=== PATIENT | female | born 1935 | race Caucasian/White ===

== ENCOUNTER 2017-03-22 06:38 | Inpatient (IN) | payer OTHER ==
[~2017-03-22] VITALS: Ht 152.4 cm; Wt 63.0 kg
[2017-03-22] MEDS ORDERED: SODIUM CHLORIDE 0.9% 1,000 ML IV ONE (07:35)
[2017-03-22] MEDS ORDERED: ONDANSETRON HCL 4 MG/2 ML VIAL IV ONE (07:45)
[2017-03-22 08:25] LABS: Basophils # (auto) 0 uL; Basophils % (auto) 0.1 % (0.0-2.0); CONDITION Y; Eosinophils # (auto) 0 uL; Eosinophils % (auto) 0.3 % (0.0-7.0); Hemoglobin 13.3 g/dL (12.2-16.2); Lymphocytes # (auto) 0.3 uL; Lymphocytes % (auto) 10.8 % (10.0-50.0); Mean Corpuscular Hemoglobin 29.7 pg (28.0-32.0); Mean Corpuscular Hgb Conc. 33.3 g/dL (32.0-36.0); Mean Corpuscular Volume 89.2 fL (80.0-100.0); Mean Platelet Volume 8.4 fL (7.4-10.4); Monocytes # (auto) 0.2 uL; Neutrophils # (auto) 2.6 uL; Neutrophils % (auto) 83.8 % (37.0-80.0); Platelet Count (auto) 279 10^3/uL (140-450); Red Cell Distribution Width 16.8 % (11.6-16.0); White Blood Cell 3.1 10^3/uL (4.4-10.8)
[2017-03-22 08:50] LABS: Albumin 2.8 g/dL (3.4-5.0); BUN/Creatinine Ratio 41.3; Bilirubin, Total 1.1 mg/dL (0.2-1.0); Calcium 8.9 mg/dL (8.5-10.1); Potassium 3.4 mmol/L (3.5-5.1); Total Protein 6.9 g/dL (6.4-8.2)
[2017-03-22] MEDS ORDERED: AZITHROMYCIN 500MG/D5W 250ML 250 ML IV ONE (09:00)
[2017-03-22 09:47] LABS: Urine Bilirubin Negative (Negative); Urine Blood TRACE /uL (Negative); Urine Color Yellow (Yellow); Urine Glucose Normal (Normal); Urine Hyaline Cast FEW /lpf (0 - 2); Urine Ketone TRACE (Negative); Urine Mucus FEW (None Seen); Urine Nitrite Negative (Negative); Urine RBC 12 /hpf (0 - 4); Urine Squamous Epithelial Cell FEW /hpf (<5); Urine pH 5.5 (5.0-8.0)
[2017-03-22] MEDS ORDERED: LORazepam 2MG/ML-1ML VIAL IV ONE (10:00)
[2017-03-22] MEDS ORDERED: MIDAZOLAM DRIP 50 mg/50mL 50 ML IV ONE (12:09)
[2017-03-22] MEDS ORDERED: ETOMIDATE (2MG/ML) 20ML VIAL IV ONE ×2 (12:15→12:18)
[2017-03-22] MEDS ORDERED: SUCCINYLCHOLINE CHLORIDE 20 MG/ML 10ML VIAL IV ONE ×2 (12:15→12:18)
[2017-03-22] MEDS: MIDAZOLAM DRIP 50 mg/50mL 50 ML IV SCH ×2 (12:30→22:30)
[2017-03-22 12:33] VITALS: BP 130/66
[2017-03-22] MEDS ORDERED: POTASSIUM CHLORIDE 20 MEQ, LIDOCAINE 1% (LOCAL ANESTH.) 2 ML in SODIUM CHL 0.9% 100 ML IV ONE (12:45)
[2017-03-22 13:45] LABS: Allen Test Modified; Base Excess 2.3 mmol/L (-2.0-2.0); Blood 02Sat 97.9 % (96-100); Blood COHb 0.7 % (0.5-1.5); Blood MetHb 0.6 % (0.0-1.5); HCO3 26.4 mmol/L (22-26.0); HHb 2.1 % (0.0-5.0); MODE VENT - A/C; O2Hb 96.6 % (94.0-97.0); PCO2 39.1 mmHg (35.0-45.0); PCO2(T) 39.1 mmHg (35.0-45.0); PO2 130.6 mmHg (80.0-100.0); PO2(T) 130.6 mmHg (80.0-100.0); Sample Type Arterial; pH 7.447 (7.350-7.450)
[2017-03-22 14:00] VITALS: BP 128/69
[2017-03-22] MEDS ORDERED: ACETAMINOPHEN 650 mg PER 20 mL UD ONE (14:43)
[2017-03-22] MEDS ORDERED: NOREPINEPHRINE BITARTRATE 250 ML IV ONE (14:44)
[2017-03-22] MEDS ORDERED: ACETAMINOPHEN 650 mg PER 20 mL UD GT ONE (15:00)
[2017-03-22] MEDS: NOREPINEPHRINE BITARTRATE 250 ML IV SCH (15:00)
[2017-03-22 15:43] VITALS: BP 124/66
[2017-03-22] MEDS ORDERED: SODIUM CHLORIDE 0.9% 2,000 ML IV ONE (18:00)
[2017-03-22] MEDS: SODIUM CHLORIDE 0.9% 1,000 ML IV SCH (18:00)
[2017-03-22] MEDS ORDERED: ONDANSETRON HCL 4 MG/2 ML VIAL IV PRN (18:00)
[2017-03-22] MEDS ORDERED: NITROGLYCERIN 0.4 MG SL TAB SL PRN (18:00)
[2017-03-22] MEDS ORDERED: MORPHINE SULF INJ 2 MG/ML SYRINGE 1ML IV PRN (18:00)
[2017-03-22] MEDS ORDERED: VANCOMYCIN PER PHARMACY 0 MG IV SCH (18:00)
[2017-03-22] MEDS ORDERED: ACETAMINOPHEN 650 mg PER 20 mL UD GT PRN (18:00)
[2017-03-22 18:30] LABS: Allen Test Yes; Base Excess 1.1 mmol/L (-2.0-2.0); Blood 02Sat 93.6 % (96-100); Blood COHb 0.5 % (0.5-1.5); Blood MetHb 0.6 % (0.0-1.5); HCO3 26.7 mmol/L (22-26.0); HHb 6.3 % (0.0-5.0); MODE VENT - A/C; O2Hb 92.6 % (94.0-97.0); PCO2 46.4 mmHg (35.0-45.0); PCO2(T) 47.4 mmHg (35.0-45.0); PO2 79.8 mmHg (80.0-100.0); PO2(T) 82.5 mmHg (80.0-100.0); Sample Type Arterial; pH 7.378 (7.350-7.450)
[2017-03-22] MEDS ORDERED: OMEPRAZOLE 20MG/10ML ORAL SUSP GT SCH (18:37)
[2017-03-22] MEDS ORDERED: PANTOPRAZOLE SODIUM 40 MG/10 ML VIAL IV ONE (19:00)
[2017-03-22 20:00] VITALS: BP 100/51
[2017-03-22] MEDS ORDERED: VANCOMYCIN 1GM/250ML D5W 250 ML IV ONE (20:00)
[2017-03-22] MEDS: PIPERACILLIN-TAZOB 3.375GM 100 ML IV SCH (20:10)
[2017-03-22 20:22] LABS: Albumin 2.1 g/dL (3.4-5.0); BUN/Creatinine Ratio 37.2; Bilirubin, Total 1.1 mg/dL (0.2-1.0); Calcium 7.9 mg/dL (8.5-10.1); Potassium 3.1 mmol/L (3.5-5.1); Total Protein 5.4 g/dL (6.4-8.2)
[2017-03-22 20:36] VITALS: BP 96/48
[2017-03-22 20:37] LABS: CONDITION Y; DEFINITIVE SEE PRINTOUT; Hematocrit 36.5 % (36.0-46.0); Mean Corpuscular Hemoglobin 29.7 pg (28.0-32.0); Mean Corpuscular Hgb Conc. 32.8 g/dL (32.0-36.0); Mean Corpuscular Volume 90.6 fL (80.0-100.0); Mean Platelet Volume 8.9 fL (7.4-10.4); Platelet Count (auto) 200 10^3/uL (140-450); Red Cell Distribution Width 16.9 % (11.6-16.0); SUSPECT SEE PRINTOUT
[2017-03-22 20:45] LABS: White Blood Cell 1.9 10^3/uL (4.4-10.8)
[2017-03-22 20:47] LABS: Metamyelocytes % 0; Myelocytes % 0; Promyelocytes % 0; Reactive Lymphocytes 0
[2017-03-22 21:02] LABS: Burr Cells FEW; Giant Platelets Few; Platelet Clumps FEW; Platelet Estimate Adequate; Stomatocytes Few
[2017-03-22 22:05] VITALS: BP 85/49
[2017-03-22] MEDS: ALBUTEROL SULF 2.5 MG/0.5ML(0.5%) NEB SOLN NEB SCH (22:05)
[2017-03-22] MEDS: IPRATROPIUM BROM 0.5 MG/2.5ML INH SOL NEB SCH (22:05)
[2017-03-22 22:11] LABS: INR 1.16 (0.9-1.15); Partial Thromboplastin Time 27.7 sec (22.64-33.71)
[2017-03-22 22:12] LABS: Prothrombin Time 12.7 sec (9.37-12.3)
[2017-03-23] VITALS (98 sets, daily range): BP systolic 86–149; BP diastolic 28–116
[2017-03-23] MEDS: PIPERACILLIN-TAZOB 3.375GM 100 ML IV SCH ×4 (00:06→18:22)
[2017-03-23] MEDS: NOREPINEPHRINE BITARTRATE 250 ML IV SCH (00:25)
[2017-03-23] MEDS: SODIUM CHLORIDE 0.9% 1,000 ML IV SCH (04:00)
[2017-03-23 05:28] LABS: Basophils # (auto) 0 uL; Basophils % (auto) 0.3 % (0.0-2.0); CONDITION Y; Eosinophils # (auto) 0 uL; Eosinophils % (auto) 0.6 % (0.0-7.0); Hematocrit 34.4 % (36.0-46.0); Hemoglobin 11.4 g/dL (12.2-16.2); Lymphocytes # (auto) 0.8 uL; Lymphocytes % (auto) 18.6 % (10.0-50.0); Mean Corpuscular Hemoglobin 29.9 pg (28.0-32.0); Mean Corpuscular Hgb Conc. 33.1 g/dL (32.0-36.0); Mean Corpuscular Volume 90.2 fL (80.0-100.0); Mean Platelet Volume 9.4 fL (7.4-10.4); Monocytes # (auto) 0 uL; Neutrophils # (auto) 3.5 uL; Neutrophils % (auto) 79.5 % (37.0-80.0); Platelet Count (auto) 213 10^3/uL (140-450); Red Cell Distribution Width 16.7 % (11.6-16.0); SUSPECT SEE PRINTOUT; White Blood Cell 4.4 10^3/uL (4.4-10.8)
[2017-03-23 05:43] LABS: INR 1.15 (0.9-1.15); Partial Thromboplastin Time 29.6 sec (22.64-33.71)
[2017-03-23 05:55] LABS: Prothrombin Time 12.5 sec (9.37-12.3)
[2017-03-23 05:58] LABS: Albumin 2.1 g/dL (3.4-5.0); BUN/Creatinine Ratio 49.4; Calcium 7.4 mg/dL (8.5-10.1); Magnesium 1.8 mg/dL (1.6-2.6); Potassium 3.2 mmol/L (3.5-5.1)
[2017-03-23 06:01] LABS: Bilirubin, Total 1.4 mg/dL (0.2-1.0); Total Protein 5.7 g/dL (6.4-8.2)
[2017-03-23] MEDS: IPRATROPIUM BROM 0.5 MG/2.5ML INH SOL NEB SCH ×3 (06:52→18:39)
[2017-03-23] MEDS: ALBUTEROL SULF 2.5 MG/0.5ML(0.5%) NEB SOLN NEB SCH ×3 (06:52→18:39)
[2017-03-23 08:41] LABS: Allen Test Yes; Base Excess 3.3 mmol/L (-2.0-2.0); Blood 02Sat 95.5 % (96-100); Blood COHb 0.3 % (0.5-1.5); Blood MetHb 0.4 % (0.0-1.5); HCO3 27.2 mmol/L (22-26.0); HHb 4.5 % (0.0-5.0); MODE VENT - A/C; O2Hb 94.8 % (94.0-97.0); PCO2 38.6 mmHg (35.0-45.0); PCO2(T) 38.6 mmHg (35.0-45.0); PO2 83.1 mmHg (80.0-100.0); PO2(T) 83.1 mmHg (80.0-100.0); Sample Type Arterial; pH 7.466 (7.350-7.450)
[2017-03-23] MEDS ORDERED: MOMLQ GT (08:58)
[2017-03-23] MEDS ORDERED: OMEP20CA74 PO (09:12)
[2017-03-23] MEDS ORDERED: LORA1TAB12 PO (09:12)
[2017-03-23] MEDS ORDERED: ACE3T PO (09:12)
[2017-03-23] MEDS ORDERED: ARTISOL13 EACHEYE (09:12)
[2017-03-23] MEDS ORDERED: ACET5SOL5 PO (09:12)
[2017-03-23] MEDS ORDERED: BISA10SU3 RE (09:12)
[2017-03-23] MEDS ORDERED: OLAN20TA13 PO (09:12)
[2017-03-23] MEDS ORDERED: DOCU100C8 PO (09:12)
[2017-03-23] MEDS ORDERED: TRAZ100T2 PO (09:12)
[2017-03-23] MEDS ORDERED: LOPE2TAB99 PO (09:12)
[2017-03-23] MEDS ORDERED: ONDA4TAB5 PO (09:12)
[2017-03-23] MEDS ORDERED: OMEPRAZOLE 20MG/10ML ORAL SUSP GT SCH (10:00)
[2017-03-23] MEDS: PANTOPRAZOLE SODIUM 40 MG/10 ML VIAL IV SCH (10:14)
[2017-03-23] MEDS: VANCOMYCIN 1GM/250ML D5W 250 ML IV SCH (10:14)
[2017-03-23] MEDS ORDERED: SODIUM CHLORIDE 0.9% 1,000 ML IV ONE (11:15)
[2017-03-23] MEDS: SOD CHL 0.45% 1,000 ML IV SCH (12:00)
[2017-03-23] MEDS ORDERED: FREE WATER GT SCH (14:00)
[2017-03-23 18:12] LABS: CONDITION Y; Hematocrit 31.3 % (36.0-46.0); Hemoglobin 10.5 g/dL (12.2-16.2); Mean Corpuscular Hemoglobin 30.6 pg (28.0-32.0); Mean Corpuscular Hgb Conc. 33.5 g/dL (32.0-36.0); Mean Corpuscular Volume 91.3 fL (80.0-100.0); Mean Platelet Volume 9.1 fL (7.4-10.4); Platelet Count (auto) 182 10^3/uL (140-450); Red Cell Distribution Width 16.4 % (11.6-16.0); SUSPECT SEE PRINTOUT; White Blood Cell 7.8 10^3/uL (4.4-10.8)
[2017-03-23 18:17] LABS: Metamyelocytes % 0; Myelocytes % 0; Promyelocytes % 0; Reactive Lymphocytes 0
[2017-03-23 18:24] LABS: INR 1.15 (0.9-1.15); Partial Thromboplastin Time 32.7 sec (22.64-33.71)
[2017-03-23 18:33] LABS: Prothrombin Time 12.6 sec (9.37-12.3)
[2017-03-23 18:35] LABS: Albumin 1.8 g/dL (3.4-5.0); Bilirubin, Total 0.9 mg/dL (0.2-1.0); Calcium 7.5 mg/dL (8.5-10.1); Magnesium 1.9 mg/dL (1.6-2.6); Total Protein 5.5 g/dL (6.4-8.2)
[2017-03-23 18:38] LABS: Bilirubin, Direct 0.3 mg/dL (0-0.2)
[2017-03-23 20:26] LABS: Platelet Estimate Adequate
[2017-03-23 20:27] LABS: Ovalocytes FEW
[2017-03-23] MEDS ORDERED: ALBUMIN 25% 100 ML IV ONE (22:45)
[2017-03-23] MEDS: POTASSIUM CHL 20MEQ/100ML 100 ML IV SCH (23:14)
[2017-03-24] VITALS (81 sets, daily range): BP systolic 87–156; BP diastolic 31–86
[2017-03-24] MEDS: ALBUTEROL SULF 2.5 MG/0.5ML(0.5%) NEB SOLN NEB SCH ×4 (00:19→18:00)
[2017-03-24] MEDS: IPRATROPIUM BROM 0.5 MG/2.5ML INH SOL NEB SCH ×4 (00:19→18:00)
[2017-03-24] MEDS: PIPERACILLIN-TAZOB 3.375GM 100 ML IV SCH ×5 (01:30→23:41)
[2017-03-24] MEDS: POTASSIUM CHL 20MEQ/100ML 100 ML IV SCH ×4 (02:15→21:37)
[2017-03-24 05:08] LABS: CONDITION Y; Hematocrit 29.4 % (36.0-46.0); Hemoglobin 9.7 g/dL (12.2-16.2); Mean Platelet Volume 8.9 fL (7.4-10.4); Platelet Count (auto) 162 10^3/uL (140-450); Red Cell Distribution Width 16.8 % (11.6-16.0); SUSPECT SEE PRINTOUT; White Blood Cell 11.2 10^3/uL (4.4-10.8)
[2017-03-24 05:12] LABS: Metamyelocytes % 0; Myelocytes % 0; Promyelocytes % 0; Reactive Lymphocytes 0
[2017-03-24 05:24] LABS: INR 1.05 (0.9-1.15); Partial Thromboplastin Time 33.8 sec (22.64-33.71); Prothrombin Time 11.4 sec (9.37-12.3)
[2017-03-24 05:49] LABS: Albumin 2.4 g/dL (3.4-5.0); BUN/Creatinine Ratio 49.1; Calcium 7.8 mg/dL (8.5-10.1); Magnesium 2.1 mg/dL (1.6-2.6); Potassium 3.3 mmol/L (3.5-5.1); Total Protein 5.9 g/dL (6.4-8.2)
[2017-03-24 05:52] LABS: Bilirubin, Direct 0.3 mg/dL (0-0.2)
[2017-03-24 06:54] LABS: Allen Test Modified; Base Excess 3.4 mmol/L (-2.0-2.0); Blood COHb 0.7 % (0.5-1.5); Blood MetHb 0.8 % (0.0-1.5); HCO3 27.7 mmol/L (22-26.0); HHb 4.9 % (0.0-5.0); MODE VENT - A/C; O2Hb 93.6 % (94.0-97.0); PCO2 40.7 mmHg (35.0-45.0); PCO2(T) 40.7 mmHg (35.0-45.0); PO2 79.3 mmHg (80.0-100.0); PO2(T) 79.3 mmHg (80.0-100.0); Sample Type Arterial
[2017-03-24 07:56] LABS: Platelet Estimate Adequate; RBC Morphology Normal
[2017-03-24] MEDS: SOD CHL 0.45% 1,000 ML IV SCH ×4 (08:15→22:39)
[2017-03-24] MEDS: MIDAZOLAM DRIP 50 mg/50mL 50 ML IV SCH ×2 (08:40→17:12)
[2017-03-24] MEDS: VANCOMYCIN 1GM/250ML D5W 250 ML IV SCH (09:49)
[2017-03-24] MEDS: PANTOPRAZOLE SODIUM 40 MG/10 ML VIAL IV SCH (09:49)
[2017-03-24] MEDS: NOREPINEPHRINE BITARTRATE 250 ML IV SCH (14:11)
[2017-03-24] MEDS: ENOXAPARIN SOD 40 MG/0.4 ML SYRINGE SC SCH (14:17)
[2017-03-24] MEDS ORDERED: ACETAMINOPHEN 650 MG RECT SUPP PR PRN (15:00)
[2017-03-24 18:24] LABS: CONDITION Y; Hematocrit 28.5 % (36.0-46.0); Hemoglobin 9.5 g/dL (12.2-16.2); Mean Corpuscular Hemoglobin 29.9 pg (28.0-32.0); Mean Corpuscular Hgb Conc. 33.2 g/dL (32.0-36.0); Mean Corpuscular Volume 89.9 fL (80.0-100.0); Mean Platelet Volume 9.5 fL (7.4-10.4); Platelet Count (auto) 146 10^3/uL (140-450); Red Cell Distribution Width 16.7 % (11.6-16.0); SUSPECT SEE PRINTOUT; White Blood Cell 11.1 10^3/uL (4.4-10.8)
[2017-03-24 18:39] LABS: Metamyelocytes % 0; Myelocytes % 0; Promyelocytes % 0; Reactive Lymphocytes 0
[2017-03-24 18:44] LABS: Albumin 2.1 g/dL (3.4-5.0); BUN/Creatinine Ratio 47.6; Calcium 8.2 mg/dL (8.5-10.1); Magnesium 2.2 mg/dL (1.6-2.6); Potassium 3.2 mmol/L (3.5-5.1); Total Protein 5.7 g/dL (6.4-8.2)
[2017-03-24 18:46] LABS: INR 0.96 (0.9-1.15); Partial Thromboplastin Time 34.1 sec (22.64-33.71); Prothrombin Time 10.5 sec (9.37-12.3)
[2017-03-24 18:51] LABS: Bilirubin, Direct 0.3 mg/dL (0-0.2)
[2017-03-24 20:18] LABS: Platelet Estimate Adequate
[2017-03-25] VITALS (96 sets, daily range): BP systolic 94–173; BP diastolic 40–113
[2017-03-25] MEDS: ALBUTEROL SULF 2.5 MG/0.5ML(0.5%) NEB SOLN NEB SCH (00:05)
[2017-03-25] MEDS: IPRATROPIUM BROM 0.5 MG/2.5ML INH SOL NEB SCH ×4 (00:05→18:28)
[2017-03-25] MEDS ORDERED: fentaNYL Drip 2500mCg/250mlNS 250 ML IV SCH (01:36)
[2017-03-25] MEDS ORDERED: ALBUMIN 5% 250 ML IV ONE (01:45)
[2017-03-25] MEDS: PIPERACILLIN-TAZOB 3.375GM 100 ML IV SCH ×2 (06:25→11:22)
[2017-03-25 07:02] LABS: Allen Test Modified; Base Excess 2.1 mmol/L (-2.0-2.0); Blood COHb 0.4 % (0.5-1.5); Blood MetHb 1.8 % (0.0-1.5); HCO3 26.7 mmol/L (22-26.0); HHb 6.8 % (0.0-5.0); MODE VENT - A/C; PCO2 41.8 mmHg (35.0-45.0); PCO2(T) 41.8 mmHg (35.0-45.0); PO2 70.8 mmHg (80.0-100.0); PO2(T) 70.8 mmHg (80.0-100.0); Sample Type Arterial; Spont Vt 421; pH 7.423 (7.350-7.450)
[2017-03-25 08:14] LABS: CONDITION Y; Hematocrit 27.5 % (36.0-46.0); Hemoglobin 9.2 g/dL (12.2-16.2); Mean Corpuscular Hemoglobin 30.1 pg (28.0-32.0); Mean Corpuscular Hgb Conc. 33.5 g/dL (32.0-36.0); Mean Corpuscular Volume 89.9 fL (80.0-100.0); Mean Platelet Volume 9.4 fL (7.4-10.4); Platelet Count (auto) 140 10^3/uL (140-450); Red Cell Distribution Width 16.9 % (11.6-16.0); SUSPECT SEE PRINTOUT; White Blood Cell 10.1 10^3/uL (4.4-10.8)
[2017-03-25 08:23] LABS: INR 0.92 (0.9-1.15); Partial Thromboplastin Time 30.4 sec (22.64-33.71)
[2017-03-25 08:27] LABS: Metamyelocytes % 0; Myelocytes % 0; Promyelocytes % 0; Reactive Lymphocytes 0
[2017-03-25 08:39] LABS: BUN/Creatinine Ratio 36.4; Calcium 7.7 mg/dL (8.5-10.1); Magnesium 1.9 mg/dL (1.6-2.6); Potassium 3.1 mmol/L (3.5-5.1)
[2017-03-25 08:42] LABS: Bilirubin, Total 0.8 mg/dL (0.2-1.0); Total Protein 5.4 g/dL (6.4-8.2)
[2017-03-25 09:00] LABS: Bilirubin, Direct 0.2 mg/dL (0-0.2)
[2017-03-25] MEDS: PANTOPRAZOLE SODIUM 40 MG/10 ML VIAL IV SCH (09:37)
[2017-03-25] MEDS: POTASSIUM CHL 20MEQ/100ML 100 ML IV SCH ×2 (09:38→11:22)
[2017-03-25 09:49] LABS: Platelet Estimate Adequate
[2017-03-25 09:52] LABS: Tear Drop Cells FEW
[2017-03-25] MEDS ORDERED: VANCOMYCIN 1GM/250ML D5W 250 ML IV SCH (10:00)
[2017-03-25] MEDS ORDERED: PANTOPRAZOLE SODIUM 40 MG/10 ML VIAL IV SCH (10:00)
[2017-03-25] MEDS ORDERED: TPN PER PHARMACY 0 ML IV SCH ×2 (12:00→15:00)
[2017-03-25] MEDS ORDERED: MIDAZOLAM HCL 1MG/1ML-2 ML VIAL IV PRN (12:00)
[2017-03-25 12:18] LABS: B-Type Natriuretic Peptide 105.78 pg/mL (0-100)
[2017-03-25 12:40] LABS: Temperature: 24.6 C (20.0-25.0)
[2017-03-25] MEDS: cefTRIAXone 1GM/50ML D5W 50 ML IV SCH (12:46)
[2017-03-25] MEDS: ENOXAPARIN SOD 40 MG/0.4 ML SYRINGE SC SCH (12:47)
[2017-03-25 13:48] LABS: Magnesium 2.1 mg/dL (1.6-2.6); Phosphorus 1.9 mg/dL (2.5-4.90)
[2017-03-25] MEDS: NOREPINEPHRINE BITARTRATE 250 ML IV SCH (15:00)
[2017-03-25] MEDS: SOD CHL 0.45% 1,000 ML IV SCH (15:03)
[2017-03-25] MEDS: InsuLIN REG 1unit/0.01ml Soln (100units/ml) SC SCH (17:44)
[2017-03-25] MEDS: ACCU-CHEK COMFORT CURVE STRIP VI SCH (17:44)
[2017-03-25] MEDS ORDERED: DEXTROSE (50%) 50ML SYRG IV SCH (18:00)
[2017-03-25] MEDS ORDERED: POTASSIUM PHOSPHATE 44 MEQ in NS 0.9% 250 ML IV ONE (18:00)
[2017-03-25 19:38] LABS: CONDITION Y; Hemoglobin 9.5 g/dL (12.2-16.2); Mean Corpuscular Hemoglobin 29.7 pg (28.0-32.0); Mean Corpuscular Hgb Conc. 32.9 g/dL (32.0-36.0); Mean Corpuscular Volume 90.5 fL (80.0-100.0); Mean Platelet Volume 10.1 fL (7.4-10.4); Platelet Count (auto) 135 10^3/uL (140-450); Red Cell Distribution Width 16.4 % (11.6-16.0); SUSPECT SEE PRINTOUT; White Blood Cell 8.5 10^3/uL (4.4-10.8)
[2017-03-25 19:46] LABS: Metamyelocytes % 0; Myelocytes % 0; Promyelocytes % 0; Reactive Lymphocytes 0
[2017-03-25 19:49] LABS: Albumin 1.9 g/dL (3.4-5.0); BUN/Creatinine Ratio 40.6; Bilirubin, Direct 0.2 mg/dL (0-0.2); Bilirubin, Total 0.6 mg/dL (0.2-1.0); Magnesium 1.9 mg/dL (1.6-2.6); Potassium 3.7 mmol/L (3.5-5.1); Total Protein 5.5 g/dL (6.4-8.2)
[2017-03-25] MEDS ORDERED: CLINIMIX PER PHARMACY IV NR ×7 (20:00)
[2017-03-25 20:15] LABS: INR 0.93 (0.9-1.15); Partial Thromboplastin Time 24.6 sec (22.64-33.71); Prothrombin Time 10.1 sec (9.37-12.3)
[2017-03-25 21:05] LABS: Platelet Estimate Decreased
[2017-03-26] VITALS (70 sets, daily range): BP systolic 111–171; BP diastolic 47–100
[2017-03-26] MEDS: IPRATROPIUM BROM 0.5 MG/2.5ML INH SOL NEB SCH ×4 (00:12→18:41)
[2017-03-26] MEDS: SOD CHL 0.45% 1,000 ML IV SCH ×3 (04:15→21:10)
[2017-03-26] MEDS: InsuLIN REG 1unit/0.01ml Soln (100units/ml) SC SCH ×4 (06:00→18:00)
[2017-03-26 06:14] LABS: Basophils # (auto) 0 uL; Basophils % (auto) 0.1 % (0.0-2.0); CONDITION Y; Eosinophils # (auto) 0.1 uL; Eosinophils % (auto) 1.9 % (0.0-7.0); Hematocrit 29.6 % (36.0-46.0); Hemoglobin 9.8 g/dL (12.2-16.2); Lymphocytes # (auto) 1.3 uL; Lymphocytes % (auto) 17.2 % (10.0-50.0); Mean Corpuscular Hgb Conc. 33.2 g/dL (32.0-36.0); Mean Corpuscular Volume 90.5 fL (80.0-100.0); Mean Platelet Volume 10.3 fL (7.4-10.4); Monocytes # (auto) 0 uL; Monocytes % (auto) 0.6 % (0.0-12.0); Neutrophils # (auto) 6.2 uL; Neutrophils % (auto) 80.2 % (37.0-80.0); Platelet Count (auto) 153 10^3/uL (140-450); Red Cell Distribution Width 16.5 % (11.6-16.0); White Blood Cell 7.7 10^3/uL (4.4-10.8)
[2017-03-26 06:25] LABS: INR 0.95 (0.9-1.15); Partial Thromboplastin Time 27.7 sec (22.64-33.71); Prothrombin Time 10.4 sec (9.37-12.3)
[2017-03-26 06:44] LABS: Albumin 1.9 g/dL (3.4-5.0); Bilirubin, Direct 0.1 mg/dL (0-0.2); Bilirubin, Total 0.5 mg/dL (0.2-1.0); Calcium 7.9 mg/dL (8.5-10.1); Magnesium 1.8 mg/dL (1.6-2.6); Phosphorus 2.6 mg/dL (2.5-4.90); Potassium 3.5 mmol/L (3.5-5.1); Total Protein 5.5 g/dL (6.4-8.2)
[2017-03-26] MEDS: ACCU-CHEK COMFORT CURVE STRIP VI SCH ×4 (06:50→18:00)
[2017-03-26] MEDS: cefTRIAXone 1GM/50ML D5W 50 ML IV SCH (08:16)
[2017-03-26] MEDS ORDERED: FUROSEMIDE 40 MG/4 ML VIAL IV ONE (08:45)
[2017-03-26 08:54] LABS: Allen Test Yes; Base Excess 1.9 mmol/L (-2.0-2.0); Blood 02Sat 90.2 % (96-100); Blood COHb 0.3 % (0.5-1.5); Blood MetHb 0.2 % (0.0-1.5); HCO3 24.8 mmol/L (22-26.0); HHb 9.8 % (0.0-5.0); MODE VENT - A/C; O2Hb 89.7 % (94.0-97.0); PCO2 32.7 mmHg (35.0-45.0); PCO2(T) 32.7 mmHg (35.0-45.0); PO2 59.4 mmHg (80.0-100.0); PO2(T) 59.4 mmHg (80.0-100.0); Sample Type Arterial; pH 7.497 (7.350-7.450)
[2017-03-26] MEDS: PANTOPRAZOLE SODIUM 40 MG/10 ML VIAL IV SCH (09:13)
[2017-03-26] MEDS ORDERED: FUROSEMIDE 20 MG/2 ML VIAL IV ONE (09:15)
[2017-03-26] MEDS ORDERED: POTASSIUM CHL 20MEQ/100ML 100 ML IV ONE (11:00)
[2017-03-26] MEDS: ENOXAPARIN SOD 40 MG/0.4 ML SYRINGE SC SCH (12:02)
[2017-03-26] MEDS: NOREPINEPHRINE BITARTRATE 250 ML IV SCH (15:00)
[2017-03-26] MEDS ORDERED: LEVOFLOXACIN 500MG 100 ML IV ONE (16:45)
[2017-03-26] MEDS ORDERED: TPN PER PHARMACY IV NR ×10 (20:00)
[2017-03-26] MEDS: METOPROLOL TARTRATE 25 MG TAB PO SCH (22:29)
[2017-03-27] VITALS (41 sets, daily range): BP systolic 110–179; BP diastolic 36–109
[2017-03-27] MEDS: ACCU-CHEK COMFORT CURVE STRIP VI SCH ×4 (00:16→18:00)
[2017-03-27] MEDS: IPRATROPIUM BROM 0.5 MG/2.5ML INH SOL NEB SCH ×4 (00:16→19:05)
[2017-03-27] MEDS: InsuLIN REG 1unit/0.01ml Soln (100units/ml) SC SCH ×4 (00:17→18:00)
[2017-03-27 04:02] LABS: Basophils # (auto) 0.1 uL; Basophils % (auto) 0.5 % (0.0-2.0); CONDITION Y; Eosinophils # (auto) 0 uL; Eosinophils % (auto) 0.2 % (0.0-7.0); Hematocrit 28.9 % (36.0-46.0); Hemoglobin 9.7 g/dL (12.2-16.2); Lymphocytes # (auto) 1.1 uL; Lymphocytes % (auto) 10.7 % (10.0-50.0); Mean Corpuscular Hemoglobin 30.1 pg (28.0-32.0); Mean Corpuscular Hgb Conc. 33.7 g/dL (32.0-36.0); Mean Corpuscular Volume 89.3 fL (80.0-100.0); Mean Platelet Volume 9.5 fL (7.4-10.4); Monocytes # (auto) 0.3 uL; Monocytes % (auto) 3.5 % (0.0-12.0); Neutrophils # (auto) 8.5 uL; Neutrophils % (auto) 85.1 % (37.0-80.0); Platelet Count (auto) 190 10^3/uL (140-450); Red Cell Distribution Width 16.1 % (11.6-16.0)
[2017-03-27 04:37] LABS: BUN/Creatinine Ratio 27.5; Bilirubin, Total 0.4 mg/dL (0.2-1.0); Magnesium 1.8 mg/dL (1.6-2.6); Phosphorus 2.3 mg/dL (2.5-4.90); Potassium 3.2 mmol/L (3.5-5.1); Total Protein 5.9 g/dL (6.4-8.2)
[2017-03-27 08:44] LABS: Allen Test Yes; Base Excess 3.7 mmol/L (-2.0-2.0); Blood 02Sat 94.6 % (96-100); Blood COHb 0.3 % (0.5-1.5); Blood MetHb 0.3 % (0.0-1.5); HCO3 27.1 mmol/L (22-26.0); HHb 5.4 % (0.0-5.0); MODE VENT - A/C; PCO2 35.9 mmHg (35.0-45.0); PCO2(T) 35.9 mmHg (35.0-45.0); Sample Type Arterial; pH 7.495 (7.350-7.450)
[2017-03-27] MEDS ORDERED: FUROSEMIDE 40 MG/4 ML VIAL IV ONE (09:15)
[2017-03-27] MEDS: POTASSIUM CHL 20MEQ/100ML 100 ML IV SCH ×2 (09:39→11:56)
[2017-03-27] MEDS: PANTOPRAZOLE SODIUM 40 MG/10 ML VIAL IV SCH (09:40)
[2017-03-27] MEDS: LEVOFLOXACIN 250MG 50 ML IV SCH (09:40)
[2017-03-27] MEDS: METOPROLOL TARTRATE 25 MG TAB PO SCH ×2 (09:41→21:56)
[2017-03-27 11:51] LABS: Allen Test Yes; Base Excess 3.6 mmol/L (-2.0-2.0); Blood 02Sat 94.5 % (96-100); Blood COHb 0.1 % (0.5-1.5); Blood MetHb 0.2 % (0.0-1.5); HCO3 27.7 mmol/L (22-26.0); HHb 5.5 % (0.0-5.0); MODE VENT - CPAP; O2Hb 94.2 % (94.0-97.0); PO2 77.4 mmHg (80.0-100.0); PO2(T) 77.4 mmHg (80.0-100.0); Pressure Support 10; Sample Type Arterial; Spont Vt 345; pH 7.458 (7.350-7.450)
[2017-03-27] MEDS: ENOXAPARIN SOD 40 MG/0.4 ML SYRINGE SC SCH (12:22)
[2017-03-27] MEDS: NOREPINEPHRINE BITARTRATE 250 ML IV SCH (12:36)
[2017-03-27] MEDS ORDERED: ACETAMINOPHEN 325 MG TAB PO PRN (16:00)
[2017-03-27] MEDS ORDERED: TPN PER PHARMACY IV NR ×11 (20:00)
[2017-03-27] MEDS: SOD CHL 0.45% 1,000 ML IV SCH (20:43)
[2017-03-28] VITALS (31 sets, daily range): BP systolic 124–160; BP diastolic 49–83
[2017-03-28] MEDS: IPRATROPIUM BROM 0.5 MG/2.5ML INH SOL NEB SCH ×4 (00:23→18:20)
[2017-03-28 04:01] LABS: Basophils # (auto) 0 uL; Basophils % (auto) 0.2 % (0.0-2.0); CONDITION Y; Eosinophils # (auto) 0.2 uL; Eosinophils % (auto) 1.7 % (0.0-7.0); Hematocrit 28.8 % (36.0-46.0); Hemoglobin 9.6 g/dL (12.2-16.2); Lymphocytes # (auto) 1.8 uL; Lymphocytes % (auto) 18.8 % (10.0-50.0); Mean Corpuscular Hgb Conc. 33.4 g/dL (32.0-36.0); Mean Corpuscular Volume 89.8 fL (80.0-100.0); Mean Platelet Volume 9.4 fL (7.4-10.4); Monocytes # (auto) 0.5 uL; Monocytes % (auto) 5.4 % (0.0-12.0); Neutrophils # (auto) 7.2 uL; Neutrophils % (auto) 73.9 % (37.0-80.0); Platelet Count (auto) 231 10^3/uL (140-450); Red Cell Distribution Width 16.8 % (11.6-16.0); White Blood Cell 9.8 10^3/uL (4.4-10.8)
[2017-03-28 04:24] LABS: Albumin 1.9 g/dL (3.4-5.0); BUN/Creatinine Ratio 35.9; Bilirubin, Total 0.3 mg/dL (0.2-1.0); Calcium 8.1 mg/dL (8.5-10.1); Magnesium 2.1 mg/dL (1.6-2.6); Phosphorus 2.5 mg/dL (2.5-4.90); Potassium 3.5 mmol/L (3.5-5.1); Total Protein 5.9 g/dL (6.4-8.2)
[2017-03-28] MEDS: ACCU-CHEK COMFORT CURVE STRIP VI SCH ×4 (05:40→17:56)
[2017-03-28] MEDS: InsuLIN REG 1unit/0.01ml Soln (100units/ml) SC SCH ×4 (05:41→17:56)
[2017-03-28] MEDS: PANTOPRAZOLE SODIUM 40 MG/10 ML VIAL IV SCH (10:15)
[2017-03-28] MEDS: METOPROLOL TARTRATE 25 MG TAB PO SCH ×2 (10:15→22:21)
[2017-03-28] MEDS: LEVOFLOXACIN 250MG 50 ML IV SCH (10:15)
[2017-03-28] MEDS: ENOXAPARIN SOD 40 MG/0.4 ML SYRINGE SC SCH (12:48)
[2017-03-28] MEDS: NOREPINEPHRINE BITARTRATE 250 ML IV SCH (15:00)
[2017-03-28] MEDS: SOD CHL 0.45% 1,000 ML IV SCH (20:00)
[2017-03-28] MEDS ORDERED: TPN PER PHARMACY IV NR ×11 (20:00)
[2017-03-29] MEDS: IPRATROPIUM BROM 0.5 MG/2.5ML INH SOL NEB SCH ×4 (00:14→18:12)
[2017-03-29] MEDS: ACCU-CHEK COMFORT CURVE STRIP VI SCH ×5 (00:22→23:47)
[2017-03-29] MEDS: InsuLIN REG 1unit/0.01ml Soln (100units/ml) SC SCH ×5 (00:22→23:50)
[2017-03-29 05:00] VITALS: BP 159/75
[2017-03-29 05:54] LABS: Basophils # (auto) 0 uL; Basophils % (auto) 0.2 % (0.0-2.0); CONDITION Y; Eosinophils # (auto) 0.2 uL; Eosinophils % (auto) 1.6 % (0.0-7.0); Lymphocytes % (auto) 19.5 % (10.0-50.0); Mean Corpuscular Hemoglobin 29.9 pg (28.0-32.0); Mean Corpuscular Hgb Conc. 33.5 g/dL (32.0-36.0); Mean Corpuscular Volume 89.4 fL (80.0-100.0); Monocytes # (auto) 0.5 uL; Monocytes % (auto) 5.2 % (0.0-12.0); Neutrophils # (auto) 7.5 uL; Neutrophils % (auto) 73.5 % (37.0-80.0); Platelet Count (auto) 315 10^3/uL (140-450); Red Cell Distribution Width 16.4 % (11.6-16.0); White Blood Cell 10.3 10^3/uL (4.4-10.8)
[2017-03-29 06:17] LABS: Albumin 2.1 g/dL (3.4-5.0); BUN/Creatinine Ratio 34.1; Bilirubin, Total 0.5 mg/dL (0.2-1.0); Calcium 8.2 mg/dL (8.5-10.1); Magnesium 2.3 mg/dL (1.6-2.6); Phosphorus 2.9 mg/dL (2.5-4.90); Total Protein 6.3 g/dL (6.4-8.2)
[2017-03-29 08:25] VITALS: BP 150/64
[2017-03-29] MEDS: METOPROLOL TARTRATE 25 MG TAB PO SCH ×2 (10:00→22:00)
[2017-03-29] MEDS: LEVOFLOXACIN 250MG 50 ML IV SCH (10:00)
[2017-03-29] MEDS: PANTOPRAZOLE SODIUM 40 MG/10 ML VIAL IV SCH (10:00)
[2017-03-29] MEDS ORDERED: TPN PER PHARMACY 0 ML IV SCH (11:30)
[2017-03-29] MEDS: ENOXAPARIN SOD 40 MG/0.4 ML SYRINGE SC SCH (12:37)
[2017-03-29 13:00] VITALS: BP 150/77
[2017-03-29] MEDS ORDERED: GASTROGRAFIN 120 ML SOL ONE (17:29)
[2017-03-29 18:20] VITALS: BP 150/77
[2017-03-29] MEDS ORDERED: TPN PER PHARMACY IV NR ×10 (20:00)
[2017-03-29] MEDS: SOD CHL 0.45% 1,000 ML IV SCH (20:53)
[2017-03-29 22:00] VITALS: BP 132/54
[2017-03-30] MEDS: IPRATROPIUM BROM 0.5 MG/2.5ML INH SOL NEB SCH ×4 (00:15→19:29)
[2017-03-30 05:00] VITALS: BP 142/61
[2017-03-30 05:52] LABS: Basophils # (auto) 0 uL; Basophils % (auto) 0.3 % (0.0-2.0); CONDITION Y; Eosinophils # (auto) 0.2 uL; Eosinophils % (auto) 1.4 % (0.0-7.0); Hematocrit 30.4 % (36.0-46.0); Hemoglobin 10.1 g/dL (12.2-16.2); Lymphocytes # (auto) 1.9 uL; Lymphocytes % (auto) 15.8 % (10.0-50.0); Mean Corpuscular Hemoglobin 29.8 pg (28.0-32.0); Mean Corpuscular Hgb Conc. 33.4 g/dL (32.0-36.0); Mean Corpuscular Volume 89.3 fL (80.0-100.0); Mean Platelet Volume 8.7 fL (7.4-10.4); Monocytes # (auto) 0.5 uL; Monocytes % (auto) 3.7 % (0.0-12.0); Neutrophils # (auto) 9.5 uL; Neutrophils % (auto) 78.8 % (37.0-80.0); Platelet Count (auto) 381 10^3/uL (140-450); Red Cell Distribution Width 16.9 % (11.6-16.0)
[2017-03-30] MEDS: ACCU-CHEK COMFORT CURVE STRIP VI SCH ×3 (05:54→18:08)
[2017-03-30] MEDS: InsuLIN REG 1unit/0.01ml Soln (100units/ml) SC SCH ×3 (05:54→18:28)
[2017-03-30 06:15] LABS: Albumin 2.1 g/dL (3.4-5.0); BUN/Creatinine Ratio 37.5; Bilirubin, Total 0.6 mg/dL (0.2-1.0); Calcium 8.3 mg/dL (8.5-10.1); Magnesium 2.2 mg/dL (1.6-2.6); Phosphorus 3.4 mg/dL (2.5-4.90); Potassium 4.2 mmol/L (3.5-5.1); Total Protein 6.3 g/dL (6.4-8.2)
[2017-03-30] MEDS ORDERED: GASTROGRAFIN 120 ML SOL ONE (08:16)
[2017-03-30] MEDS ORDERED: FUROSEMIDE 100 MG/10ML VIAL IV ONE (09:30)
[2017-03-30] MEDS: LEVOFLOXACIN 250MG 50 ML IV SCH (11:10)
[2017-03-30] MEDS: METOPROLOL TARTRATE 25 MG TAB PO SCH ×2 (11:10→22:00)
[2017-03-30] MEDS: PANTOPRAZOLE SODIUM 40 MG/10 ML VIAL IV SCH (11:10)
[2017-03-30] MEDS: ENOXAPARIN SOD 40 MG/0.4 ML SYRINGE SC SCH (13:00)
[2017-03-30] MEDS: LORazepam 2MG/ML-1ML VIAL IV PRN (13:45)
[2017-03-30 19:34] VITALS: BP 141/94
[2017-03-30 20:00] VITALS: BP 127/45
[2017-03-30] MEDS ORDERED: TPN PER PHARMACY IV NR ×11 (20:00)
[2017-03-30] MEDS: SOD CHL 0.45% 1,000 ML IV SCH (20:45)
[2017-03-31] MEDS: InsuLIN REG 1unit/0.01ml Soln (100units/ml) SC SCH ×4 (00:25→17:44)
[2017-03-31] MEDS: ACCU-CHEK COMFORT CURVE STRIP VI SCH ×5 (00:25→23:53)
[2017-03-31] MEDS: IPRATROPIUM BROM 0.5 MG/2.5ML INH SOL NEB SCH ×5 (00:28→23:32)
[2017-03-31 05:00] VITALS: BP 139/59
[2017-03-31 05:35] LABS: Basophils # (auto) 0 uL; Basophils % (auto) 0.1 % (0.0-2.0); CONDITION Y; Eosinophils # (auto) 0 uL; Hematocrit 33.5 % (36.0-46.0); Hemoglobin 11.1 g/dL (12.2-16.2); Lymphocytes # (auto) 1.6 uL; Lymphocytes % (auto) 8.2 % (10.0-50.0); Mean Corpuscular Hemoglobin 29.7 pg (28.0-32.0); Mean Corpuscular Hgb Conc. 33.1 g/dL (32.0-36.0); Mean Corpuscular Volume 89.8 fL (80.0-100.0); Mean Platelet Volume 8.8 fL (7.4-10.4); Monocytes # (auto) 0.2 uL; Monocytes % (auto) 1.2 % (0.0-12.0); Neutrophils # (auto) 17.5 uL; Neutrophils % (auto) 90.5 % (37.0-80.0); Platelet Count (auto) 426 10^3/uL (140-450); Red Cell Distribution Width 16.5 % (11.6-16.0); White Blood Cell 19.3 10^3/uL (4.4-10.8)
[2017-03-31 06:01] LABS: Albumin 2.4 g/dL (3.4-5.0); BUN/Creatinine Ratio 45.3; Bilirubin, Total 0.8 mg/dL (0.2-1.0); Calcium 8.8 mg/dL (8.5-10.1); Magnesium 2.5 mg/dL (1.6-2.6); Phosphorus 3.3 mg/dL (2.5-4.90); Total Protein 7.3 g/dL (6.4-8.2)
[2017-03-31 09:00] VITALS: BP 132/60
[2017-03-31] MEDS: LEVOFLOXACIN 250MG 50 ML IV SCH (10:03)
[2017-03-31] MEDS: PANTOPRAZOLE SODIUM 40 MG/10 ML VIAL IV SCH (10:04)
[2017-03-31] MEDS: METOPROLOL TARTRATE 25 MG TAB PO SCH ×2 (10:05→20:34)
[2017-03-31] MEDS: PIPERACILLIN-TAZOB 3.375GM 100 ML IV SCH ×2 (12:31→17:44)
[2017-03-31] MEDS: LORazepam 2MG/ML-1ML VIAL IV PRN (12:40)
[2017-03-31 13:00] VITALS: BP_SYST 117; BP_SYST 147; BP_DIAS 71
[2017-03-31] MEDS: ENOXAPARIN SOD 40 MG/0.4 ML SYRINGE SC SCH (14:32)
[2017-03-31 17:00] VITALS: BP 125/74
[2017-03-31] MEDS: SOD CHL 0.45% 1,000 ML IV SCH (20:00)
[2017-03-31] MEDS ORDERED: TPN PER PHARMACY IV NR ×10 (20:00)
[2017-03-31 22:00] VITALS: BP 116/59
[2017-04-01] VITALS (37 sets, daily range): BP systolic 89–178; BP diastolic 33–75
[2017-04-01] MEDS: InsuLIN REG 1unit/0.01ml Soln (100units/ml) SC SCH ×4 (00:20→17:38)
[2017-04-01] MEDS: PIPERACILLIN-TAZOB 3.375GM 100 ML IV SCH ×5 (00:20→23:15)
[2017-04-01] MEDS: ACCU-CHEK COMFORT CURVE STRIP VI SCH ×3 (06:00→17:38)
[2017-04-01 06:23] LABS: Basophils # (auto) 0 uL; Basophils % (auto) 0.1 % (0.0-2.0); CONDITION Y; Eosinophils # (auto) 0.1 uL; Eosinophils % (auto) 0.5 % (0.0-7.0); Hematocrit 33.1 % (36.0-46.0); Lymphocytes # (auto) 0.5 uL; Lymphocytes % (auto) 3.7 % (10.0-50.0); Mean Corpuscular Hemoglobin 29.9 pg (28.0-32.0); Mean Corpuscular Hgb Conc. 33.3 g/dL (32.0-36.0); Mean Corpuscular Volume 89.7 fL (80.0-100.0); Mean Platelet Volume 9.1 fL (7.4-10.4); Monocytes # (auto) 0.2 uL; Monocytes % (auto) 1.6 % (0.0-12.0); Neutrophils # (auto) 12.6 uL; Neutrophils % (auto) 94.1 % (37.0-80.0); Platelet Count (auto) 460 10^3/uL (140-450); Red Cell Distribution Width 16.6 % (11.6-16.0); White Blood Cell 13.4 10^3/uL (4.4-10.8)
[2017-04-01 06:41] LABS: INR 0.98 (0.9-1.15); Prothrombin Time 10.7 sec (9.37-12.3)
[2017-04-01] MEDS: IPRATROPIUM BROM 0.5 MG/2.5ML INH SOL NEB SCH ×4 (07:00→23:52)
[2017-04-01 08:38] LABS: Albumin 2.2 g/dL (3.4-5.0); BUN/Creatinine Ratio 53.1; Bilirubin, Total 1.7 mg/dL (0.2-1.0); Calcium 8.8 mg/dL (8.5-10.1); Magnesium 2.2 mg/dL (1.6-2.6); Phosphorus 3.5 mg/dL (2.5-4.90); Potassium 4.1 mmol/L (3.5-5.1); Total Protein 7.5 g/dL (6.4-8.2)
[2017-04-01] MEDS ORDERED: SUCCINYLCHOLINE CHLORIDE 20 MG/ML 10ML VIAL IV ONE (09:25)
[2017-04-01] MEDS ORDERED: PHENYLEPHRINE HCL 10 MG/ML VL ONE ×2 (09:37→11:41)
[2017-04-01] MEDS ORDERED: MIDAZOLAM HCL 1MG/1ML-2 ML VIAL IV PRN (12:00)
[2017-04-01] MEDS ORDERED: PROPOFOL 100 ML IV ONE (12:30)
[2017-04-01] MEDS: HYDROmorphone HCL 2 MG/ML VL IV PRN ×2 (12:55→18:37)
[2017-04-01 13:20] LABS: Allen Test Modified; Base Excess 0.3 mmol/L (-2.0-2.0); Blood 02Sat 92.7 % (96-100); Blood COHb 0.4 % (0.5-1.5); Blood MetHb 0.3 % (0.0-1.5); HCO3 24.5 mmol/L (22-26.0); HHb 7.2 % (0.0-5.0); MODE VENT - A/C; O2Hb 92.1 % (94.0-97.0); PCO2 37.6 mmHg (35.0-45.0); PCO2(T) 38.4 mmHg (35.0-45.0); PIP 28; PO2 69.4 mmHg (80.0-100.0); PO2(T) 71.8 mmHg (80.0-100.0); Room 0295T; Sample Type Arterial; pH 7.431 (7.350-7.450)
[2017-04-01] MEDS: METOPROLOL TARTRATE 25 MG TAB PO SCH ×2 (13:57→22:00)
[2017-04-01] MEDS: ENOXAPARIN SOD 40 MG/0.4 ML SYRINGE SC SCH (13:58)
[2017-04-01] MEDS: LEVOFLOXACIN 250MG 50 ML IV SCH (14:35)
[2017-04-01] MEDS: PANTOPRAZOLE SODIUM 40 MG/10 ML VIAL IV SCH (14:36)
[2017-04-01] MEDS ORDERED: LACTATED RINGER'S 1,000 ML IV ONE (15:45)
[2017-04-01] MEDS: LACTATED RINGER'S 1,000 ML IV SCH (16:47)
[2017-04-01] MEDS ORDERED: HYDROmorphone HCL 2 MG/ML VL IV PRN (19:45)
[2017-04-01] MEDS ORDERED: TPN PER PHARMACY IV NR ×10 (20:00)
[2017-04-01] MEDS: PROPOFOL 100 ML IV SCH (23:15)
[2017-04-02] VITALS (90 sets, daily range): BP systolic 53–213; BP diastolic 34–212
[2017-04-02] MEDS: ACCU-CHEK COMFORT CURVE STRIP VI SCH ×4 (00:22→18:00)
[2017-04-02] MEDS: InsuLIN REG 1unit/0.01ml Soln (100units/ml) SC SCH ×4 (00:22→18:00)
[2017-04-02] MEDS: LACTATED RINGER'S 1,000 ML IV SCH ×2 (00:45→10:04)
[2017-04-02 04:17] LABS: Basophils # (auto) 0 uL; Basophils % (auto) 0.2 % (0.0-2.0); CONDITION Y; Eosinophils # (auto) 0.2 uL; Hematocrit 28.1 % (36.0-46.0); Hemoglobin 9.5 g/dL (12.2-16.2); Lymphocytes % (auto) 9.7 % (10.0-50.0); Mean Corpuscular Hemoglobin 30.8 pg (28.0-32.0); Mean Corpuscular Hgb Conc. 33.8 g/dL (32.0-36.0); Mean Corpuscular Volume 91.1 fL (80.0-100.0); Mean Platelet Volume 9.1 fL (7.4-10.4); Monocytes # (auto) 0.3 uL; Monocytes % (auto) 2.7 % (0.0-12.0); Neutrophils # (auto) 8.3 uL; Neutrophils % (auto) 85.4 % (37.0-80.0); Platelet Count (auto) 431 10^3/uL (140-450); Red Cell Distribution Width 16.2 % (11.6-16.0); White Blood Cell 9.8 10^3/uL (4.4-10.8)
[2017-04-02 04:29] LABS: Albumin 1.6 g/dL (3.4-5.0); BUN/Creatinine Ratio 54.7; Bilirubin, Total 1.6 mg/dL (0.2-1.0); Calcium 7.5 mg/dL (8.5-10.1); Magnesium 1.9 mg/dL (1.6-2.6); Phosphorus 3.6 mg/dL (2.5-4.90); Potassium 4.7 mmol/L (3.5-5.1)
[2017-04-02] MEDS: PIPERACILLIN-TAZOB 3.375GM 100 ML IV SCH ×3 (05:15→18:00)
[2017-04-02] MEDS: PROPOFOL 100 ML IV SCH (05:36)
[2017-04-02] MEDS: IPRATROPIUM BROM 0.5 MG/2.5ML INH SOL NEB SCH ×3 (06:37→18:00)
[2017-04-02 08:24] LABS: Allen Test Yes; Base Excess -1.6 mmol/L (-2.0-2.0); Blood COHb 0.4 % (0.5-1.5); Blood MetHb 0.1 % (0.0-1.5); HCO3 22.5 mmol/L (22-26.0); MODE VENT - A/C; O2Hb 96.5 % (94.0-97.0); PCO2 35.2 mmHg (35.0-45.0); PCO2(T) 35.2 mmHg (35.0-45.0); PO2 103.6 mmHg (80.0-100.0); PO2(T) 103.6 mmHg (80.0-100.0); Sample Type Arterial; pH 7.423 (7.350-7.450)
[2017-04-02] MEDS: MORPHINE SULF INJ 2 MG/ML SYRINGE 1ML IV PRN ×2 (09:39→20:45)
[2017-04-02] MEDS: LEVOFLOXACIN 250MG 50 ML IV SCH (09:41)
[2017-04-02] MEDS: PANTOPRAZOLE SODIUM 40 MG/10 ML VIAL IV SCH (09:41)
[2017-04-02] MEDS: METOPROLOL TARTRATE 25 MG TAB PO SCH ×2 (09:42→22:00)
[2017-04-02] MEDS: ENOXAPARIN SOD 40 MG/0.4 ML SYRINGE SC SCH (13:00)
[2017-04-02 13:29] LABS: Allen Test Yes; Base Excess 0.8 mmol/L (-2.0-2.0); Blood 02Sat 92.8 % (96-100); Blood COHb 0.2 % (0.5-1.5); Blood MetHb 0.3 % (0.0-1.5); HHb 7.2 % (0.0-5.0); MODE VENT - CPAP; O2Hb 92.3 % (94.0-97.0); PCO2 38.4 mmHg (35.0-45.0); PCO2(T) 38.4 mmHg (35.0-45.0); PO2 70.5 mmHg (80.0-100.0); PO2(T) 70.5 mmHg (80.0-100.0); Pressure Support 8; Sample Type Arterial; Spont Vt 584; pH 7.431 (7.350-7.450)
[2017-04-02] MEDS ORDERED: FUROSEMIDE 40 MG/4 ML VIAL IV ONE (15:45)
[2017-04-02] MEDS ORDERED: TPN PER PHARMACY IV NR ×11 (20:00)
[2017-04-03] VITALS (52 sets, daily range): BP systolic 121–178; BP diastolic 32–97
[2017-04-03] MEDS: IPRATROPIUM BROM 0.5 MG/2.5ML INH SOL NEB SCH ×4 (00:41→19:39)
[2017-04-03] MEDS: PROPOFOL 100 ML IV SCH ×2 (02:06→06:45)
[2017-04-03 04:28] LABS: Albumin 1.6 g/dL (3.4-5.0); BUN/Creatinine Ratio 52.8; Bilirubin, Total 0.9 mg/dL (0.2-1.0); Calcium 7.5 mg/dL (8.5-10.1); Magnesium 1.9 mg/dL (1.6-2.6); Phosphorus 1.8 mg/dL (2.5-4.90); Potassium 3.5 mmol/L (3.5-5.1); Total Protein 5.8 g/dL (6.4-8.2)
[2017-04-03] MEDS: PIPERACILLIN-TAZOB 3.375GM 100 ML IV SCH ×5 (04:54→23:49)
[2017-04-03] MEDS: InsuLIN REG 1unit/0.01ml Soln (100units/ml) SC SCH ×5 (06:00→23:50)
[2017-04-03] MEDS: ACCU-CHEK COMFORT CURVE STRIP VI SCH ×5 (06:00→23:50)
[2017-04-03] MEDS ORDERED: POTASSIUM PHOSP 22MEQ(15MMOLE) in NS 100 ML IV ONE (08:00)
[2017-04-03] MEDS: METOPROLOL TARTRATE 25 MG TAB PO SCH ×2 (10:00→22:00)
[2017-04-03] MEDS: PANTOPRAZOLE SODIUM 40 MG/10 ML VIAL IV SCH (10:57)
[2017-04-03] MEDS: MORPHINE SULF INJ 2 MG/ML SYRINGE 1ML IV PRN ×2 (11:02→16:47)
[2017-04-03] MEDS: ENOXAPARIN SOD 40 MG/0.4 ML SYRINGE SC SCH (13:00)
[2017-04-03] MEDS: LORazepam 2MG/ML-1ML VIAL IV PRN (14:57)
[2017-04-03] MEDS ORDERED: TPN PER PHARMACY IV NR ×11 (20:00)
[2017-04-04] VITALS (27 sets, daily range): BP systolic 94–179; BP diastolic 39–100
[2017-04-04] MEDS: IPRATROPIUM BROM 0.5 MG/2.5ML INH SOL NEB SCH ×4 (01:06→18:24)
[2017-04-04] MEDS: MORPHINE SULF INJ 2 MG/ML SYRINGE 1ML IV PRN ×3 (01:50→13:03)
[2017-04-04] MEDS: LORazepam 2MG/ML-1ML VIAL IV PRN (04:30)
[2017-04-04 04:40] LABS: Albumin 1.8 g/dL (3.4-5.0); Calcium 7.9 mg/dL (8.5-10.1); Magnesium 1.8 mg/dL (1.6-2.6); Potassium 3.9 mmol/L (3.5-5.1)
[2017-04-04 04:42] LABS: Bilirubin, Total 0.9 mg/dL (0.2-1.0); Total Protein 6.4 g/dL (6.4-8.2)
[2017-04-04 04:52] LABS: Phosphorus 1.6 mg/dL (2.5-4.90)
[2017-04-04] MEDS: ACCU-CHEK COMFORT CURVE STRIP VI SCH ×3 (05:28→18:00)
[2017-04-04] MEDS: InsuLIN REG 1unit/0.01ml Soln (100units/ml) SC SCH ×3 (05:28→18:00)
[2017-04-04 05:51] LABS: Basophils # (auto) 0 uL; Basophils % (auto) 0.1 % (0.0-2.0); CONDITION Y; Eosinophils # (auto) 0.2 uL; Eosinophils % (auto) 2.1 % (0.0-7.0); Hematocrit 26.2 % (36.0-46.0); Hemoglobin 8.7 g/dL (12.2-16.2); Lymphocytes # (auto) 1.6 uL; Lymphocytes % (auto) 16.4 % (10.0-50.0); Mean Corpuscular Hgb Conc. 33.3 g/dL (32.0-36.0); Mean Corpuscular Volume 89.9 fL (80.0-100.0); Mean Platelet Volume 9.4 fL (7.4-10.4); Monocytes # (auto) 0.5 uL; Monocytes % (auto) 4.9 % (0.0-12.0); Neutrophils # (auto) 7.4 uL; Neutrophils % (auto) 76.5 % (37.0-80.0); Platelet Count (auto) 432 10^3/uL (140-450); Red Cell Distribution Width 16.5 % (11.6-16.0); White Blood Cell 9.6 10^3/uL (4.4-10.8)
[2017-04-04] MEDS: PIPERACILLIN-TAZOB 3.375GM 100 ML IV SCH ×3 (06:09→18:00)
[2017-04-04] MEDS: PANTOPRAZOLE SODIUM 40 MG/10 ML VIAL IV SCH (09:59)
[2017-04-04] MEDS: METOPROLOL TARTRATE 25 MG TAB PO SCH ×2 (09:59→21:35)
[2017-04-04] MEDS ORDERED: POTASSIUM PHOSPHATE 26.4 MEQ in SODIUM CHL 0.9% 100 ML IV ONE (11:00)
[2017-04-04] MEDS: ENOXAPARIN SOD 40 MG/0.4 ML SYRINGE SC SCH (13:02)
[2017-04-04] MEDS ORDERED: ONDANSETRON HCL 4 MG/2 ML VIAL IV PRN (16:30)
[2017-04-04] MEDS ORDERED: TPN PER PHARMACY IV NR ×11 (20:00)
[2017-04-04] MEDS: QUEtiapine FUMARATE 25 MG TAB PO SCH (21:35)
[2017-04-05] VITALS (43 sets, daily range): BP systolic 94–194; BP diastolic 35–103
[2017-04-05] MEDS: PIPERACILLIN-TAZOB 3.375GM 100 ML IV SCH ×4 (00:05→18:42)
[2017-04-05] MEDS: METOPROLOL TARTRATE 25 MG TAB PO SCH ×3 (00:15→22:00)
[2017-04-05] MEDS: ACCU-CHEK COMFORT CURVE STRIP VI SCH ×4 (00:25→18:55)
[2017-04-05] MEDS: MORPHINE SULF INJ 2 MG/ML SYRINGE 1ML IV PRN ×2 (03:44→13:21)
[2017-04-05 04:48] LABS: Albumin 1.7 g/dL (3.4-5.0); BUN/Creatinine Ratio 40.4; Bilirubin, Total 0.8 mg/dL (0.2-1.0); Calcium 8.1 mg/dL (8.5-10.1); Magnesium 2.2 mg/dL (1.6-2.6); Phosphorus 3.2 mg/dL (2.5-4.90); Potassium 3.8 mmol/L (3.5-5.1); Total Protein 6.3 g/dL (6.4-8.2)
[2017-04-05] MEDS: InsuLIN REG 1unit/0.01ml Soln (100units/ml) SC SCH ×4 (06:00→18:55)
[2017-04-05] MEDS: IPRATROPIUM BROM 0.5 MG/2.5ML INH SOL NEB SCH ×3 (07:01→19:17)
[2017-04-05] MEDS: LISINOPRIL 5 MG TAB PO SCH (11:54)
[2017-04-05] MEDS: ENOXAPARIN SOD 40 MG/0.4 ML SYRINGE SC SCH (13:00)
[2017-04-05] MEDS ORDERED: OLANZapine 5 MG TAB PO ONE (17:30)
[2017-04-05] MEDS ORDERED: TPN PER PHARMACY IV NR ×10 (20:00)
[2017-04-05] MEDS: QUEtiapine FUMARATE 25 MG TAB PO SCH (22:08)
[2017-04-06] VITALS (60 sets, daily range): BP systolic 76–136; BP diastolic 28–100
[2017-04-06] MEDS: PIPERACILLIN-TAZOB 3.375GM 100 ML IV SCH ×5 (00:24→23:39)
[2017-04-06] MEDS: IPRATROPIUM BROM 0.5 MG/2.5ML INH SOL NEB SCH ×3 (00:33→19:20)
[2017-04-06] MEDS: LORazepam 2MG/ML-1ML VIAL IV PRN ×2 (03:20→15:00)
[2017-04-06 04:02] LABS: Basophils # (auto) 0 uL; Basophils % (auto) 0.4 % (0.0-2.0); CONDITION Y; Eosinophils # (auto) 0.1 uL; Eosinophils % (auto) 1.1 % (0.0-7.0); Hematocrit 28.4 % (36.0-46.0); Hemoglobin 9.4 g/dL (12.2-16.2); Lymphocytes # (auto) 1.9 uL; Lymphocytes % (auto) 18.4 % (10.0-50.0); Mean Corpuscular Hemoglobin 29.6 pg (28.0-32.0); Mean Corpuscular Hgb Conc. 32.9 g/dL (32.0-36.0); Mean Corpuscular Volume 89.8 fL (80.0-100.0); Mean Platelet Volume 9.2 fL (7.4-10.4); Monocytes % (auto) 9.3 % (0.0-12.0); Neutrophils # (auto) 7.3 uL; Neutrophils % (auto) 70.8 % (37.0-80.0); Platelet Count (auto) 539 10^3/uL (140-450); Red Cell Distribution Width 16.5 % (11.6-16.0); White Blood Cell 10.3 10^3/uL (4.4-10.8)
[2017-04-06 04:12] LABS: Albumin 1.8 g/dL (3.4-5.0); BUN/Creatinine Ratio 36.1; Bilirubin, Total 0.6 mg/dL (0.2-1.0); Calcium 8.3 mg/dL (8.5-10.1); Magnesium 2.5 mg/dL (1.6-2.6); Phosphorus 3.5 mg/dL (2.5-4.90); Total Protein 6.8 g/dL (6.4-8.2)
[2017-04-06] MEDS: ACCU-CHEK COMFORT CURVE STRIP VI SCH ×5 (06:00→23:40)
[2017-04-06] MEDS: InsuLIN REG 1unit/0.01ml Soln (100units/ml) SC SCH ×5 (06:15→23:40)
[2017-04-06] MEDS: OLANZapine 5 MG TAB PO SCH (10:54)
[2017-04-06] MEDS: METOPROLOL TARTRATE 25 MG TAB PO SCH ×2 (10:54→21:43)
[2017-04-06] MEDS: LISINOPRIL 5 MG TAB PO SCH (10:54)
[2017-04-06] MEDS: MORPHINE SULF INJ 2 MG/ML SYRINGE 1ML IV PRN (11:08)
[2017-04-06] MEDS: ENOXAPARIN SOD 40 MG/0.4 ML SYRINGE SC SCH (13:00)
[2017-04-06] MEDS ORDERED: SODIUM CHLORIDE 0.9% 500 ML IV ONE (17:30)
[2017-04-06] MEDS ORDERED: TPN PER PHARMACY IV NR ×9 (20:00)
[2017-04-07] VITALS (41 sets, daily range): BP systolic 108–153; BP diastolic 28–87
[2017-04-07] MEDS: IPRATROPIUM BROM 0.5 MG/2.5ML INH SOL NEB SCH ×4 (00:55→19:55)
[2017-04-07 04:11] LABS: Albumin 1.6 g/dL (3.4-5.0); BUN/Creatinine Ratio 51.9; Bilirubin, Total 0.4 mg/dL (0.2-1.0); Calcium 7.3 mg/dL (8.5-10.1); Magnesium 2.1 mg/dL (1.6-2.6); Total Protein 6.3 g/dL (6.4-8.2)
[2017-04-07] MEDS: ACCU-CHEK COMFORT CURVE STRIP VI SCH ×3 (05:24→17:58)
[2017-04-07] MEDS: InsuLIN REG 1unit/0.01ml Soln (100units/ml) SC SCH ×3 (05:25→18:00)
[2017-04-07] MEDS: PIPERACILLIN-TAZOB 3.375GM 100 ML IV SCH (05:25)
[2017-04-07] MEDS: SODIUM CHLORIDE 0.9% 1,000 ML IV SCH ×2 (07:12→12:34)
[2017-04-07] MEDS ORDERED: POTASSIUM PHOSP 22MEQ(15MMOLE) in NS 100 ML IV ONE (08:00)
[2017-04-07] MEDS: MORPHINE SULF INJ 2 MG/ML SYRINGE 1ML IV PRN ×2 (09:36→16:26)
[2017-04-07] MEDS: OLANZapine 5 MG TAB PO SCH (09:48)
[2017-04-07] MEDS: METOPROLOL TARTRATE 25 MG TAB PO SCH ×2 (09:48→22:39)
[2017-04-07] MEDS: LISINOPRIL 5 MG TAB PO SCH (09:48)
[2017-04-07] MEDS: CHOLESTYRAMINE 4 GM POWDER PO SCH ×2 (12:10→21:29)
[2017-04-07] MEDS: metroNIDAZOLE 500MG/100ML 100 ML IV SCH ×3 (12:10→22:40)
[2017-04-07] MEDS: ENOXAPARIN SOD 40 MG/0.4 ML SYRINGE SC SCH (12:29)
[2017-04-07] MEDS ORDERED: DEXTROSE (50%) 50ML SYRG IV SCH (16:00)
[2017-04-07] MEDS ORDERED: TPN PER PHARMACY IV NR ×11 (20:00)
[2017-04-07] MEDS: FLORASTOR (S. BOULARDII) 250 MG CAP PO SCH (22:38)
[2017-04-08] MEDS: IPRATROPIUM BROM 0.5 MG/2.5ML INH SOL NEB SCH ×3 (01:02→11:30)
[2017-04-08] MEDS: SODIUM CHLORIDE 0.9% 1,000 ML IV SCH ×2 (01:11→09:40)
[2017-04-08] MEDS: MORPHINE SULF INJ 2 MG/ML SYRINGE 1ML IV PRN ×3 (01:12→12:43)
[2017-04-08] MEDS: metroNIDAZOLE 500MG/100ML 100 ML IV SCH (05:22)
[2017-04-08] MEDS: ACCU-CHEK COMFORT CURVE STRIP VI SCH ×2 (05:22)
[2017-04-08] MEDS: InsuLIN REG 1unit/0.01ml Soln (100units/ml) SC SCH ×2 (05:23)
[2017-04-08 05:30] VITALS: BP 146/84
[2017-04-08 05:46] LABS: Albumin 1.8 g/dL (3.4-5.0); BUN/Creatinine Ratio 55.9; Bilirubin, Total 0.4 mg/dL (0.2-1.0); Calcium 7.9 mg/dL (8.5-10.1); Magnesium 1.9 mg/dL (1.6-2.6); Phosphorus 1.7 mg/dL (2.5-4.90); Potassium 4.4 mmol/L (3.5-5.1); Total Protein 6.8 g/dL (6.4-8.2)
[2017-04-08 08:54] VITALS: BP 146/84
[2017-04-08 09:19] VITALS: BP 146/60
[2017-04-08] MEDS: OLANZapine 5 MG TAB PO SCH (09:39)
[2017-04-08] MEDS: FLORASTOR (S. BOULARDII) 250 MG CAP PO SCH (09:39)
[2017-04-08] MEDS: LISINOPRIL 5 MG TAB PO SCH (09:40)
[2017-04-08] MEDS: METOPROLOL TARTRATE 25 MG TAB PO SCH (09:40)
[2017-04-08] MEDS: CHOLESTYRAMINE 4 GM POWDER PO SCH (11:01)
== END 2017-04-08 13:00 | DRG 853 ==
LOC: EDBD 06:38 → ER 06:39 → TELE 06:40 → ICU WEST 23:24 → TELE-WESTW 03-28 15:25 → ICU WEST 04-01 12:55 → TELE-CENTR 04-07 14:34
PROVIDERS: ADMIT Internal Medicine; ATTEND Internal Medicine
PROC: 0BH17EZ Insertion of Endotracheal Airway into Trachea, Via Natural or Artificial Opening (ICD-10-PCS; principal; 2017-03-22)
PROC: 5A1955Z Respiratory Ventilation, Greater than 96 Consecutive Hours (ICD-10-PCS; 2017-03-22)
PROC: 02HV33Z Insertion of Infusion Device into Superior Vena Cava, Percutaneous Approach (ICD-10-PCS; 2017-03-22)
PROC: 0DB80ZZ Excision of Small Intestine, Open Approach (ICD-10-PCS; 2017-04-01)
DX: A41.59 Other Gram-negative sepsis (principal); R65.21 Severe sepsis with septic shock; J69.0 Pneumonitis due to inhalation of food and vomit; N17.0 Acute kidney failure with tubular necrosis; J15.6 Pneumonia due to other Gram-negative bacteria; J96.01 Acute respiratory failure with hypoxia; J44.0 Chronic obstructive pulmonary disease with (acute) lower respiratory infection; N39.0 Urinary tract infection, site not specified; E87.0 Hyperosmolality and hypernatremia; B17.9 Acute viral hepatitis, unspecified; E87.1 Hypo-osmolality and hyponatremia; A04.7 Enterocolitis due to Clostridium difficile; K56.5 Intestinal adhesions [bands] with obstruction (postinfection); I50.9 Heart failure, unspecified; E27.8 Other specified disorders of adrenal gland; E87.6 Hypokalemia; E11.9 Type 2 diabetes mellitus without complications; E78.5 Hyperlipidemia, unspecified; I71.2 Thoracic aortic aneurysm, without rupture; I11.0 Hypertensive heart disease with heart failure; E88.09 Other disorders of plasma-protein metabolism, not elsewhere classified; E86.1 Hypovolemia; F02.80 Dementia in other diseases classified elsewhere, unspecified severity, without behavioral disturbance, psychotic disturbance, mood disturbance, and anxiety; F17.210 Nicotine dependence, cigarettes, uncomplicated; G30.9 Alzheimer's disease, unspecified; I45.10 Unspecified right bundle-branch block; K21.9 Gastro-esophageal reflux disease without esophagitis; K59.09 Other constipation; I70.0 Atherosclerosis of aorta; K58.9 Irritable bowel syndrome, unspecified; Z80.0 Family history of malignant neoplasm of digestive organs; Z93.3 Colostomy status; Z90.49 Acquired absence of other specified parts of digestive tract; Z90.710 Acquired absence of both cervix and uterus; Z80.9 Family history of malignant neoplasm, unspecified; Z82.3 Family history of stroke
CPT/HCPCS: 31500; 36415; 36556; 36600; 71010; 74176; 74250; 80048; 80053; 80076; 80202; 81001; 82040; 82805; 82962; 83605; 83735; 83880; 84100; 84132; 84478; 84484; 85007; 85025; 85027; 85610; 85730; 86850; 86900; 86901; 87040; 87070; 87075; 87077; 87081; 87086; 87186; 87205; 87493; 92610; 93005; 93306; 94002; 94003; 94640; 96361; 96365; 96366; 96367; 96375; 97110; 97163; C9113; J0330; J0696; J1815; J1956; J2001; J2250; J2405; J2543; J2704; J3480; J3490; J7131